=== PATIENT | female | born 1960 ===

== ENCOUNTER 2017-11-22 16:33 | Emergency (ER) | payer MEDICAID ==
[2017-11-22 16:42] VITALS: TEMP 98.8
--- NOTE | 2017-11-22 17:08 | ED PDOC ---
HPI: Chest Pain Time Seen by Provider: 11/22/17 16:48 Chief Complaint (Nursing): Flu-like Symptoms History Per: Patient Onset/Duration Of Symptoms: Hrs (1) Current Symptoms Are (Timing): Still Present Severity: Moderate Additional Complaint(s): Palpitations assoc with chest pain x 1 hr [employer]. No SOB, mild dizziness. Also c/o flu-like sxs cough and congestion. Denies fever. Past Medical History Vital Signs: Last Vital Signs Temp 98.8 F 11/22/17 16:40 Pulse 167 H 11/22/17 16:40 Resp 20 11/22/17 16:40 BP 136/96 H 11/22/17 16:40 Pulse Ox 99 11/22/17 17:08 - Medical History PMH: Cardia Arrhythmia (SVT), Diabetes, HTN, Hypercholesterolemia - Family History Family History: States: Unknown Family Hx - Immunization History Hx Tetanus Toxoid Vaccination: No Hx Influenza Vaccination: No Hx Pneumococcal Vaccination: No - Home Medications Home Medications: Ambulatory Orders Medication Instructions Recorded Aspirin [Aspirin Low Dose] 81 mg PO DAILY 09/20/15 Lisinopril/Hydrochlorothiazide 1 tab PO DAILY 09/20/15 [Lisinopril-Hydrochlorothiazide 25 mg-20 mg] Lisinopril/Hydrochlorothiazide 1 tab PO DAILY #30 tab 09/20/15 [Lisinopril-Hydrochlorothiazide 25 mg-20 mg] Omeprazole 20 mg PO DAILY 09/20/15 Terbinafine Hydrochloride 250 mg PO DAILY 09/20/15 diltiaZEM CD [Cardizem CD] 240 mg PO DAILY 09/20/15 diltiaZEM CD [Cardizem CD] 240 mg PO DAILY #30 c24 09/20/15 - Allergies Allergies/Adverse Reactions: Allergies Allergy/AdvReac Type Severity Reaction Status Date / Time No Known Allergies Allergy Verified 09/20/15 10:18 Review of Systems ROS Statement: Except As Marked, All Systems Reviewed And Found Negative Constitutional: Negative for: Fever ENT: Positive for: Nose Congestion Cardiovascular: Positive for: Chest Pain, Palpitations Respiratory: Positive for: Cough Physical Exam - Reviewed Nursing Documentation Reviewed: Yes Vital Signs Reviewed: Yes - Physical Exam Appears: Positive for: Non-toxic, No Acute Distress Head Exam: Positive for: ATRAUMATIC, NORMAL INSPECTION, NORMOCEPHALIC Skin: Positive for: Normal Color, Warm, DRY Eye Exam: Positive for: EOMI, Normal appearance, PERRL ENT: Positive for: Normal ENT Inspection Neck: Positive for: Normal, Painless ROM Cardiovascular/Chest: Positive for: Regular Rate, Rhythm, Tachycardia (160) Respiratory: Positive for: CNT, Normal Breath Sounds Gastrointestinal/Abdominal: Positive for: Normal Exam, Bowel Sounds, Soft Back: Positive for: Normal Inspection Extremity: Positive for: Normal ROM Neurologic/Psych: Positive for: Alert, Oriented - Laboratory Results Result Diagrams: 11/22/17 17:10 11/22/17 17:10 - ECG O2 Sat by Pulse Oximetry: 99 Medical Decision Making Medical Decision Making: Advised 24 hr obs for SVT. Pt now in NSR, hemodynamically stable and wishes to go home. Aware of risks including recurrent arrhthmia, syncope MS and . Advised f/u with PMD tomorrow and immediate return to ED if sxs recurr Disposition - Clinical Impression Clinical Impression: Paroxysmal SVT (supraventricular tachycardia) - Patient ED Disposition Is Patient to be Admitted: No Counseled Patient/Family Regarding: Studies Performed, Diagnosis, Need For Followup - Disposition Referrals: [facility] [Outside] Disposition: Routine/Home Disposition Time: 18:41 Condition: FAIR Instructions: Supraventricular Tachycardia (ED) Forms: [employer] (Cam[place]onian), [facility] ED School/Work Excuse Print Language: EGYPTIAN
[2017-11-22 17:33] LABS: ALB/GLOB RATIO 1.3 (1.0-2.1); ALBUMIN 4.6 g/dL (3.5-5.0); ALT/SGPT 44 U/L (9-52); AST/SGOT 39 U/L (14-36); BASO % 0.5 % (0.0-2.0); BLOOD UREA NITROGEN 16 mg/dl (7-17); CALCIUM 9.3 mg/dL (8.4-10.2); EOS # 0.4 K/uL (0.0-0.7); EOS % 9.4 % (0.0-4.0); GFR AFRICAN-AMERICAN > 60; GFR NON-AFRICAN AMERICAN > 60; HEMOGLOBIN 14.3 g/dL (12.0-16.0); LYMPH # 1.4 K/uL (1.0-4.3); LYMPH % 33.3 % (20.0-40.0); MEAN CELL VOLUME 80.8 fl (81.0-99.0); MEAN CORPUSCULAR HEMOGLOBIN 27.1 pg (27.0-31.0); MEAN CORPUSCULAR HGB CONC 33.5 g/dL (33.0-37.0); MEAN PLATELET VOLUME 9.8 fl (7.2-11.7); MONO # 1.1 K/uL (0.0-0.8); MONO % 26.1 % (0.0-10.0); NEUT # 1.3 K/uL (1.8-7.0); NEUT % 30.7 % (50.0-75.0); NRBC % 0.3 % (0.0-0.0); PLATELET COUNT 188 K/uL (130-400); RBC 5.28 Mil/uL (3.80-5.20); RED CELL DISTRIBUTION WIDTH 13.6 % (11.5-14.5); WHITE BLOOD COUNT 4.1 K/uL (4.8-10.8)
[2017-11-22 18:12] LABS: EOSINOPHIL 10 % (0-7); LYMPHOCYTE 33 % (20-50); MONOCYTE 25 % (0-10); NEUTROPHIL 32 % (42-75); PLATELET ESTIMATE NORMAL (NORMAL); TOTAL CELLS COUNTED 100
[2017-11-22 18:55] VITALS: BP 116/64; PULSE 81; RESP 18; O2SAT 100
--- NOTE | 2017-11-23 13:45 | CARD ---
APPROVED REPORT EKG Measurement Heart [id number] CT [id number] [id number] <Conclusion> Normal sinus rhythm Possible Left atrial enlargement Nonspecific ST abnormality Abnormal ECG
== END 2017-11-22 19:05 | disposition home or self-care (01) ==
LOC: H.ER 16:33
DX: I47.1 Supraventricular tachycardia (principal)
CPT/HCPCS: 80053; 84484; 85025; 87804; 93005; 96374; 99282; J0153